=== PATIENT | male | born 1980 | race Two or more races ===

== ENCOUNTER 2018-05-28 19:58 | Emergency (ER) | payer SELFPAY ==
[~2018-05-28] VITALS: Ht 180.3 cm; Wt 84.0 kg
[2018-05-28] MEDS ORDERED: LORAZEPAM 2MG/ML CPJ IM STA (20:33)
[2018-05-28] MEDS ORDERED: HALOPERIDOL LACTATE 5MG/ML VIAL IM STA (20:33)
[2018-05-28 21:37] LABS: BASOPHILS % 0.6 % (0.0-2.0); EOSINOPHILS % 0.4 % (0.0-5.0); HEMATOCRIT. 44.2 % (42.0-52.0); HEMOGLOBIN. 14.2 g/dL (14.0-18.0); LYMPHOCYTES % 27.6 % (20.0-50.0); MEAN CORPUSCULAR HEMOGLOBIN 25.4 pg (28.0-32.0); MEAN CORPUSCULAR VOLUME 79.2 fL (80.0-94.0); MONOCYTES % 12.9 % (2.0-8.0); NEUTROPHILS % 58.5 % (40.0-76.0); PLATELET 285 x1000/uL (130-400); RED BLOOD CELL COUNT 5.58 mill/uL (4.7-6.1)
[2018-05-28 21:38] LABS: CLARITY URINE CLOUDY (CLEAR); COLOR URINE DARK YELLOW (YELLOW); KETONES URINE 1+ (NEGATIVE); LEUKOCYTE ESTERASE URINE NEGATIVE (NEGATIVE); NITRITE URINE NEGATIVE (NEGATIVE); OCCULT BLOOD URINE NEGATIVE (NEGATIVE); PROTEIN URINE 2+ (NEGATIVE); SPECIFIC GRAVITY URINE 1.025 (1.005-1.030)
[2018-05-28 21:44] LABS: CHLORIDE 103 mEq/L (98-107)
[2018-05-28 21:48] LABS: ETHANOL BLOOD < 10 mg/dL
[2018-05-28 21:50] LABS: *AMPHETAMINES SCREEN URINE PRESUMTIVE POSITIVE (NEGATIVE)
[2018-05-28 21:51] LABS: *BARBITURATES SCREEN URINE NEGATIVE (NEGATIVE); *BENZODIAZEPINES SCREEN URINE NEGATIVE (NEGATIVE)
[2018-05-28 21:52] LABS: *COCAINE SCREEN URINE PRESUMTIVE POSITIVE (NEGATIVE); CANNABINOID URINE SCREEN PRESUMTIVE POSITIVE (NEGATIVE); METHADONE URINE SCREEN NEGATIVE (NEGATIVE); OPIATES URINE SCREEN NEGATIVE (NEGATIVE); PHENCYCLIDINE URINE SCREEN NEGATIVE (NEGATIVE)
[2018-05-29 10:00] VITALS: BP 110/61
== END 2018-05-29 11:11 | disposition home or self-care (01) ==
LOC: EDBD 19:58 → ER 19:58
DX: T65.91XA Toxic effect of unspecified substance, accidental (unintentional), initial encounter (principal); F31.9 Bipolar disorder, unspecified; R44.3 Hallucinations, unspecified; Y92.89 Other specified places as the place of occurrence of the external cause
CPT/HCPCS: 36415; 80053; 80305; 80307; 80329; 81003; 85025; 96372; 99284; G0482; J1630; J2060; A4315

== ENCOUNTER 2019-03-30 17:51 | Emergency (ER) | payer MEDICAID ==
[~2019-03-30] VITALS: Ht 172.7 cm; Wt 85.0 kg
[2019-03-30 17:52] VITALS: BP 131/85
== END 2019-03-30 19:09 | disposition home or self-care (01) ==
LOC: ER 17:51
DX: S02.2XXA Fracture of nasal bones, initial encounter for closed fracture (principal); W22.8XXA Striking against or struck by other objects, initial encounter; Y93.89 Activity, other specified; Y92.89 Other specified places as the place of occurrence of the external cause; Y99.8 Other external cause status; F31.9 Bipolar disorder, unspecified
CPT/HCPCS: 70486; 99284

== ENCOUNTER 2019-12-17 13:32 | Emergency (ER) | payer MEDICAID ==
[~2019-12-17] VITALS: Ht 180.3 cm; Wt 79.0 kg
[2019-12-17 13:51] VITALS: BP 155/79
[2019-12-17] MEDS ORDERED: KETOROLAC 60MG/2ML VIAL IM ONE (17:15)
== END 2019-12-17 19:44 | disposition home or self-care (01) ==
LOC: ER 13:32
DX: M25.562 Pain in left knee (principal)
CPT/HCPCS: 73560; 96372; 99283; J1885; L1830

== ENCOUNTER 2020-09-16 20:41 | Emergency (ER) | payer MEDICAID ==
[~2020-09-16] VITALS: Ht 180.3 cm; Wt 88.0 kg
[2020-09-16] MEDS ORDERED: IBUPROFEN 400MG TABLET PO ONE (22:30)
[2020-09-16] MEDS ORDERED: ACETAMINOPHEN 325MG TABLET PO ONE (22:30)
[2020-09-16 22:32] VITALS: BP 133/98
[2020-09-16] MEDS ORDERED: IBUP-2028 MT (23:03)
[2020-09-16] MEDS ORDERED: TOPUD MT (23:03)
== END 2020-09-16 23:26 | disposition home or self-care (01) ==
LOC: ER 20:41
DX: S62.001A Unspecified fracture of navicular [scaphoid] bone of right wrist, initial encounter for closed fracture (principal); X58.XXXA Exposure to other specified factors, initial encounter; Y93.89 Activity, other specified; Y92.89 Other specified places as the place of occurrence of the external cause
CPT/HCPCS: 29125; 73110; 99283